=== PATIENT | female | born 1975 | race Caucasian/White ===

== ENCOUNTER → 2023-10-29 14:06 | Outpatient (REF) | payer OTHER, SELFPAY | LOC: WDC 14:06 | PROVIDERS: ATTENDING PHYSICIAN Family Medicine | DX: Z12.31 Encounter for screening mammogram for malignant neoplasm of breast (principal) | CPT/HCPCS: 77063; 77067 ==

== ENCOUNTER 2024-06-30 10:26 | Emergency (ER) | payer OTHER, SELFPAY ==
[2024-06-30 10:38] VITALS: BP 152/107
[2024-06-30 11:26] VITALS: BMI 41.6
[2024-06-30 11:31] VITALS: BP 139/95
[2024-06-30 12:36] LABS: % Basophils 0.8 % (0-2); % Eosinophils 5.9 % (0-6); % Immature Granulocytes 0.2 % (0-0.5); % Lymphocytes 30.5 % (20.5-51.1); % Monocytes 6.9 % (1.7-9.3); % Neutrophils 55.7 % (42.2-75.2); Absolute Basophils 0.1 10^3/uL (0-0.2); Absolute Eosinophils 0.6 10^3/uL (0-0.7); Absolute Lymphocytes 3.2 10^3/uL (1.2-3.4); Absolute Monocytes 0.7 10^3/uL (0.1-0.6); Absolute Neutrophils 5.8 10^3/uL (1.4-6.5); Hematocrit 43.3 % (37.0-47.0); Hemoglobin 14.9 g/dL (12.0-16.0); Mean Corp Hgb Conc. 34.4 g/dL (33.0-37.0); Mean Corpuscular Hgb 28.9 pg (27.0-31.0); Mean Corpuscular Volume 84.1 fL (81.0-99.0); Mean Platelet Volume 9.4 fL (7.4-10.4); Nucleated Red Blood Cells % 0 %; Platelet Count 330 10^3/uL (130-400); Red Blood Cell Count 5.15 10^6/uL (4.20-5.40); Red Cell Dist. Width 12.9 % (11.5-14.5); White Blood Cell Count 10.4 10^3/uL (4.8-10.8)
[2024-06-30 12:51] LABS: Blood Urea Nitrogen 29 mg/dl (7-17); Calcium 9.4 mg/dl (8.4-10.2); Carbon Dioxide 32 mmol/L (22-30); Chloride 98 mmol/L (98-107); Estimated Creatinine Clearance > 125 ml/min; Glucose 88 mg/dl (70-99); Potassium 3.8 mmol/L (3.5-5.1); Sodium 139 mmol/L (135-145); eGFR > 60.00
[2024-06-30] MEDS: ANCEF 10 IV (12:52)
[2024-06-30] MEDS: TORADOL 15 MG IV (12:52)
[2024-06-30 13:01] VITALS: BP 122/84
--- NOTE | 2024-06-30 13:03 | EDRN ---
Addendum entered by Janell Kaufman RN 06/30/24 13:06:
After extensively cleansing wound w/ soap and water and rinsing w/ water and drying area,
Original Note:
Dressing placed to R hand of double antibiotic ointment, 4x4 sterile gauze and tonya.
[2024-06-30] MEDS: NSS 1000 IV (13:44)
--- NOTE | 2024-06-30 14:30 | EDRN ---
Juan David PEREZ in room w/pt at this time.
--- NOTE | 2024-06-30 14:40 | ED.GENMED ---
History of Present Illness
General
Chief Complaint: Skin Problem
Source: patient
Exam Limitations: none
Time Seen by Provider: 06/30/24 11:23
Nursing documentation reviewed up to this point in time: agreed with
History of Present Illness
History of Present Illness:
49-year-old female past with history of hypertension presenting to the emergency department today with concerns of right hand redness and swelling. Patient had a biopsy and removal of a birthmark in the area on her palm a few days ago. Yesterday
she noticed this moment redness to the area was in discussion with her [employer] general supervisor and had Keflex sent to the pharmacy. She took 3 doses yesterday and 1 dose this morning. She notes that the swelling was not improving came to the ER. Denies any
fevers or systemic symptoms. Claims that she feels some achiness and fatigue but otherwise no specific symptoms otherwise.
Past History
Past History
ED Past Medical History: Other (obesity)
ED Past Surgical History: Gynecological
Social History
Tobacco: Non-smoker
Review of Systems
Review of Systems
Allergies reviewed?: Yes
All Other Systems: ROS reviewed and negative except as documented in HPI and ROS
Phy Exam
Physical Exam
Physical Exam:
GENERAL: Alert , in no apparent distress
EYE: pupils equal and reactive
NECK: Supple, no significant adenopathy.
ENT: o/p clr, mmm.
CARDIAC: Regular rate and rhythm .
LUNGS: Clear breath sounds bilaterally, no acute respiratory distress, no wheezes/rales/rhonchi
ABDOMEN: Soft, without focal tenderness, no r/g, no cvat
NEUROLOGICAL: Alert and oriented, no focal neuro deficits
SKIN: Redness and swelling to the right hand from the middle of the palm to the base of the palm mild tenderness to the area no fluctuance or induration very small red streak over the wrist but good wrist range of motion and strength no additional
significant findings. Warm and dry, skin intact.
MUSCULOSKELETAL: No edema, well perfused.
PSYCH: Normal and appropriate interaction.
Course
Orders/Labs/Results
Orders:
Orders
06/30/24 12:03
CeFAZolin 2 GRAM [Ancef] 2 grams in 10 ml IV NOW
06/30/24 12:08
Ketorolac [Toradol] 15 mg IV NOW STA
06/30/24 12:24
BMP [Basic Metabolic Panel] Urgent
CBC/With Diff [Complete Blood Count/With Diff] Urgent
06/30/24 13:15
0.9% Sodium Chloride 1000 ml [Nss] 1,000 ml IV BOLUS
06/30/24 13:43
Wound Culture [Wound/Abscess/Other Culture] Urgent
PRIYANKA Source: Ulcer
Specimen Description:
Date Specimen was Collected: 06/30/24
Time Specimen was Collected: 13:30
Abnormal Lab Results
06/30/24
12:24
Absolute Monos (auto) 0.7 H 10^3/uL
(0.1-0.6)
Carbon Dioxide 32 H mmol/L
(22-30)
BUN 29 H mg/dl
(7-17)
06/30/24 12:24
06/30/24 12:24
Vital Signs
Initial and Last Documented VS:
Initial Vital Signs
Temp Pulse Resp BP Pulse Ox
98.1 F 90 18 152/107 100
06/30/24 10:38 06/30/24 10:38 06/30/24 10:38 06/30/24 10:38 06/30/24 10:38
Last Documented Vital Signs
Temp Pulse Resp BP Pulse Ox
98.1 F 82 16 122/84 98
06/30/24 10:38 06/30/24 13:01 06/30/24 13:01 06/30/24 13:01 06/30/24 13:01
MDM/Problems Addressed
MDM/Problems Addressed:
49-year-old female presenting to the emergency department today with concerns of redness and swelling surrounding the biopsy site of the right hand from a few days ago. Redness started yesterday took 3 doses of Keflex yesterday and 1 dose today.
Has less than 24 hours of total doses at arrival to the ER. Faint redness surrounding the biopsy evelio and a small streak over the wrist no obvious redness or swelling moving more proximally. Upon arrival vital signs are normal patient no distress
white count of 10.4 otherwise elevated BUN was given fluids here also given Toradol as well as a dose of Ancef. Patient was watched here for multiple hours. There is no worsening of symptoms it was offered to the patient to be admitted concerning
there is a small amount of streaking to be watched overnight to ensure this is not worsening and improving due to the antibiotics. Alternatively the patient would like to go home considering she is not taken a full 48 hours of antibiotics and is
still likely to have improvement at home. She was advised to keep a close eye on the area and to return for any worsening symptoms.
*Critical Care Note
Total Time (30-74mins, 75-104mins- exclusive of procedures): Not Applicable
ED Attending Note
-
Portions of this chart may have been created with voice recognition software.� Occasional wrong word or��sound alike� substitutions may have occurred due to the inherent limitations of voice recognition software.
Discharge Plan
Departure
Patient Disposition: Home (Routine Discharge)
Date of Disposition: 06/30/24
Time of Disposition: 14:52
Patient with high blood pressure during this ER visit?: No
Condition: Good
Covid-19: Not Applicable
Discharge Problem:
Infected hand
Instructions: Cellulitis (Skin Infection), Adult (DC)
Prescriptions:
New
cephalexin 500 mg capsule
500 mg PO QID 5 Days Qty: 20 0RF
No Action
metoprolol succinate 100 MG tablet extended release 24 hr
100 mg PO DAILY
amlodipine 10 MG tablet
10 mg PO DAILY
fluoxetine 10 mg Tablet
10 mg PO DAILY
acetaminophen 500 mg Tablet
1,000 mg PO Q6HPRN PRN (Reason: mild pain)
cephalexin 500 mg Capsule
500 mg PO BID
hydrochlorothiazide 25 mg Tablet
25 mg PO DAILY
mupirocin 2 % Ointment
1 applic TOPICAL BID
Mounjaro 15 mg/0.5 mL Pen Injector
15 mg SC MO
Referrals:
Ale Singh MD [Family Provider] -
Activity Restrictions/Additional Instructions:
You came to the emergency department today with concerns of an infection to your right hand. Please take the prescribed medication 4 times daily. Next dose will be this evening and then following the next morning. Immediately return to the ER for
any progressive symptoms otherwise follow-up closely with your [employer] general supervisor.
Interventions
Interventions:
*Risk Screen - Suicide Last Done: 06/30/24 10:38
*General Assessment Last Done: 06/30/24 10:38
*Neglect/Abuse Screening Last Done: 06/30/24 13:01
ED- Fall Risk Assessment Last Done: 06/30/24 11:27
*ED COVID-19 Vaccine History Last Done: 06/30/24 11:27
ED-Skin Assessment Last Done: 06/30/24 11:29
Discharge Date and Time
Print Language: HEBREW
[2024-06-30 15:08] VITALS: BP 99/75
== END 2024-06-30 15:19 | disposition home or self-care (01) ==
LOC: EMR 10:26
PROVIDERS: Physician Assistant; EMERGENCY PHYSICIAN Emergency Medicine; FAMILY PHYSICIAN Family Medicine
DX: L08.9 Local infection of the skin and subcutaneous tissue, unspecified (principal); R22.31 Localized swelling, mass and lump, right upper limb; E66.9 Obesity, unspecified; I10 Essential (primary) hypertension
CPT/HCPCS: 99283; 80048; 85025; 87070; 87205

== ENCOUNTER → 2024-11-10 10:30 | Outpatient (REF) | payer OTHER, SELFPAY | LOC: WDC 10:30 | PROVIDERS: ATTENDING PHYSICIAN Family Medicine | DX: Z12.31 Encounter for screening mammogram for malignant neoplasm of breast (principal) | CPT/HCPCS: 77063; 77067 ==

== ENCOUNTER → 2024-11-21 09:30 | Outpatient (REF) | payer OTHER, SELFPAY | LOC: WDC 09:30 | PROVIDERS: ATTENDING PHYSICIAN Family Medicine | DX: R92.8 Other abnormal and inconclusive findings on diagnostic imaging of breast (principal) | CPT/HCPCS: 76642 ==